=== PATIENT | female | born 1960 | race Caucasian/White ===

== ENCOUNTER 2018-05-21 11:38 | Emergency (ER) | payer MEDICAID, OTHER ==
--- NOTE | 2018-05-21 11:39 | EDM.PDOC ---
ED HPI GENERAL MEDICAL PROBLEM - General Chief Complaint: Lower Extremity Injury/Pain Stated Complaint: LR AMBULANCE: Left Knee Injury Time Seen by Provider: 05/21/18 11:38 Source of Information: Reports: Patient, EMS, Old Records, RN, RN Notes Reviewed History Limitations: Reports: No Limitations - History of Present Illness INITIAL COMMENTS - FREE TEXT/NARRATIVE: Pt arrives to ER by [facility] from work at [facility] [employer] with c/o left knee pain sustained just prior to arrival to the ER when the pt twisted the knee while working with a large food cart. She denies any other injury. Denies any prior Hx of knee injury. Onset: Today Duration: Constant Location: Reports: Lower Extremity, Left Quality: Reports: Ache Severity: Severe Improves with: Reports: None Worsens with: Reports: None Context: Reports: Other (Work injury) Associated Symptoms: Reports: No Other Symptoms Left Knee Pain Score (Numeric/FACES): 9 - Related Data Allergies Allergy/AdvReac Type Severity Reaction Status Date / Time Penicillins Allergy Cannot Verified 05/21/18 11:40 Remember Home Meds: Home Meds Levothyroxine 112 mcg PO DAILY 02/27/14 [History] Clopidogrel [Plavix] 75 mg PO DAILY 05/21/18 [History] Past Medical History Cardiovascular History: Reports: CAD, AL, Stents Social & Family History - Family History Family Medical History: Noncontributory - Tobacco Use Smoking Status *Q: Former Smoker - Living Situation & Occupation Occupation: Employed Review of Systems - Review of Systems Review Of Systems: ROS reveals no pertinent complaints other than HPI. ED EXAM, GENERAL - Physical Exam Exam: See Below Exam Limited By: No Limitations General Appearance: Alert, WD/WN, No Apparent Distress Throat/Mouth: Normal Voice, No Airway Compromise Head: Atraumatic, Normocephalic Neck: Normal Inspection, Full Range of Motion Respiratory/Chest: No Respiratory Distress Extremities: No Pedal Edema, Normal Capillary Refill, Limited Range of Motion ( left knee due to pain), Other (small effusion left knee, no visible bruising or deformity) Neurological: Alert, Oriented, Normal Cognition, No Motor/Sensory Deficits Psychiatric: Normal Mood Skin Exam: Warm, Dry, Intact Course - Vital Signs Last Recorded V/S: Last Vital Signs Temp 36.6 C 05/21/18 11:40 Pulse 78 05/21/18 11:40 Resp 16 05/21/18 11:40 BP 152/67 H 05/21/18 11:40 Pulse Ox 93 L 05/21/18 11:40 - Orders/Labs/Meds Orders: Active Orders 24 hr Category Date Time Status Knee 3V Lt [CR] Urgent Exams 05/21/18 11:48 Ordered Acetaminophen/HYDROcodone [Montgomery 325-10 MG] Med 05/21/18 11:52 Once 1 tab PO ONETIME ONE Medication Orders Hydrocodone Bitart/Acetaminophen (Montgomery 325-10 Mg) 1 tab PO ONETIME ONE Stop: 05/21/18 11:53 Meds: Medications Generic Name Dose Route Start Last Admin Trade Name Freq PRN Reason Stop Dose Admin Hydrocodone Bitart/Acetaminophen 1 tab 05/21/18 11:52 [place] 325-10 Mg PO 05/21/18 11:53 ONETIME ONE - Radiology Interpretation Free Text/Narrative:: XR Left Knee: no fractures, see Rad. report. Departure - Departure Time of Disposition: 12:11 Disposition: Home, Self-Care 01 Condition: Good Clinical Impression: Effusion, left knee, Internal derangement of left knee - Discharge Information *PRESCRIPTION DRUG MONITORING PROGRAM REVIEWED*: No *COPY OF PRESCRIPTION DRUG MONITORING REPORT IN PATIENT VASILIY: No Instructions: Knee Effusion, [id number], Knee Sprain, Adult, [id number] Forms: ED Department Discharge Additional Instructions: Rx: Hydrocodone APAP 5mg/325mg *Do not drive or work while under the influence of this medication. Rest, ice packs, and elevate left knee to reduce pain and swelling. Use crutches and left knee immobilizer as needed for comfort. Follow up in clinic in 5 to 7 days for recheck. - My Orders Last 24 Hours: My Active Orders 05/21/18 11:48 Knee 3V Lt [CR] Urgent 05/21/18 11:52 Acetaminophen/HYDROcodone [Montgomery 325-10 MG] 1 tab PO ONETIME ONE - Assessment/Plan Last 24 Hours: My Active Orders 05/21/18 11:48 Knee 3V Lt [CR] Urgent 05/21/18 11:52 Acetaminophen/HYDROcodone [Montgomery 325-10 MG] 1 tab PO ONETIME ONE
[2018-05-21] MEDS ORDERED: Acetaminophen/HYDROcodone 325-10 MG Tab PO ONE (11:52)
--- NOTE | 2018-05-21 13:25 | CR ---
Clinical history: 58-year-old female "twisting" injury left knee. Interpretation: (3 views) Early arthritic changes i.e. reactive sclerosis but no sign of left knee joint effusion, fracture or dislocation. No radiopaque loose joint bodies. No foreign bodies.
== END 2018-05-21 12:26 | disposition home or self-care (01) ==
LOC: DL.ED 11:38
DX: M23.92 Unspecified internal derangement of left knee (principal); Z88.0 Allergy status to penicillin; Z79.899 Other long term (current) drug therapy; Z79.01 Long term (current) use of anticoagulants; Z87.891 Personal history of nicotine dependence
CPT/HCPCS: 73562; 99284; A9270